=== PATIENT | female | born 1980 | race Caucasian/White ===

== ENCOUNTER 2022-10-08 14:41 | Emergency (ER) | payer MEDICARE, SELFPAY ==
--- NOTE | 2022-10-08 14:55 | ED.CPR ---
HPI - CPR General Chief Complaint: Cardiac Arrest/CPR Stated Complaint: CARDIAC ARREST Source: EMS Mode of arrival: EMS History of Present Illness HPI narrative: 46 yo last time see normal was 3 AM per EMS,this pm found her unresponsive an ambulance called around 2 PM,upon EMS arrival she has rigor mortis CPR was started she remained asystolic per EMS,Advanced airway placed with positive C02 detector 5 per EMS. At arrival [place] on asytolic /pulseless/ code was called at 2.46 PM complaint: found unresponsive Onset (ago): unknown (last time sen normal 3 AM) Place: home Shock advised: No Initial findings in the field: unresponsive, no pulse and other rhythm (asysostolic) ROSC in the field: No Associated injuries: No Known history of: other (unknown) Review of Systems Review of Systems: Yes Unobtainable due to mental condition PMFSH Social History Social History Advance Directives: No Advance Directives Information Provided: No Physical Exam Vital Signs: Vital Signs: 0 Const: Other: unresponsive rigid ,rigor mortis present Eyes: Other: pupils fixed and dilated Resp: Other: no spontaneus ventilation,ventilated with advanced airway Auscultation: clear to auscultation bilaterally Cardio: Other: no hert sounds GI: Inspection: Yes normal to inspection Neuro: Other: unresponsive Course Reevaluation(s) Reevaluation #1: pt arrived with more than 45 minutes of ALS asystolic/rigor mortis,she was pronounced at arrival 1446,family is not here yet Time: 15:05 Reevaluation #2: Spoke with Gage Kiser accepted the case case Time: 15:12 Reevaluation #3: As now no Family arrived Time: 16:03 Medical Decision Making Medical Decision Making MDM Narrative: 42 yo female presented with out of hospital cardiac,she arrive with rtigor mortis and she was pronunced at arrival to the ED Differential Diagnosis Differential Diagnoses: The differential diagnosis associated with the presentation includes Drug OD/PE/Dissection/AL Discharge Plan Discharge Clinical Impression: Cardiac arrest Patient Disposition: Date/Time: 10/08/22 14:46
--- OUTSIDE RECORDS SUMMARY | 2022-10-08 15:02 | XMS_ITS | Continuity of Care Document ---
:1980 Author Organization [facility] p Address [address] [place] [address], [address] [place] [address]- Care Team Providers Name Role Phone Oswald Laguerre MD [facility] Care [id number] Date(s): 09/26/19 - 10/06/19 [facility] [address], [address] [place] [address]- Attending Physician: Tamera Hanson Admitting Physician: AdmTamera miranda Referring Physician: AdmtrTamera Allergies, Adverse Reactions, Alerts Substance Reaction Severity Status NKA Active Immunizations Given and Recorded Vaccine Date Status Refusal Reason pneumococcal 23-valent vaccine 08/14/17 Given influenza virus vaccine, inactivated 08/14/17 Given Medications ALPRAZolam 1 mg oral tablet, extended release 1 tablet = 1 mg, By Mouth, Daily in AM, Maintenance, 03/25/19 16:24:42 EDT, ER Tablet Start Date: 03/25/19 Status: Orderedatorvastatin 40 mg oral tablet = 40 mg, By Mouth, Daily at bedtime, # 30 tablet, 0 Refills, Maintenance, Tablet, Print Requisition Start Date: 08/15/17 Stop Date: 09/14/17 Status: Orderedcholecalciferol 2000 intl units oral capsule 1 capsule = 2,000 International_Units, By Mouth, Daily, Maintenance, 03/25/19 16:28:00 EDT, Capsule Start Date: 03/25/19 Status: Orderedfluticasone 50 mcg/inh nasal spray 2 sprays, Nares, Both, Daily in AM, Maintenance, 03/25/19 16:25:04 EDT, [place] Start Date: 03/25/19 Status: Orderedgabapentin 100 mg oral capsule 100 mg, 1, capsule, By Mouth, 3 times a day, PRN, as needed Start Date: 03/25/19 Status: Orderedlamotrigine 200 mg oral tablet = 200 mg, By Mouth, Daily in AM, 0 Refills, Maintenance, 01/11/18 10:52:14 EDT, Tablet Start Date: 01/11/18 Status: OrderedLiletta 52 mg intrauterine device 1 each = 52 mg, Intrauterine, Once, # 1 each, 0 Refills, Soft Stop, 08/26/19 12:18:35 EST, 153, cm, 08/26/19 11:33:02 EST, Height, 60.3, kg, 03/26/19 1:52:48 EDT, Dry Weight Start Date: 08/26/19 Status: Orderedmeclizine 25 mg oral tablet 1 tablet = 25 mg, By Mouth, 3 times a day, PRN for motion sickness, # 30 tablet, 0 Refills, Maintenance, 08/11/17 18:45:05, Tablet Start Date: 08/11/17 Status: Orderedolanzapine 20 mg oral tablet 1 tablet = 20 mg, By Mouth, Daily at bedtime, Maintenance, 03/25/19 16:26:30 EDT, Tablet Start Date: 03/25/19 Status: Orderedpropranolol 10 mg oral tablet 10 mg, 1, tablet, By Mouth, 2 times a day, Maintenance, 03/25/19 16:26:59 EDT Start Date: 03/25/19 Status: OrderedTylenol 325 mg oral capsule 2 capsule = 650 mg, By Mouth, Every 4 hours, PRN as needed for fever, # 20 capsule, 0 Refills, Maintenance, 09/02/19 8:30:13 EST, Capsule, [facility]/pharmacy #[id number], 153.5, cm, 09/02/19 6:56:51 EST, Height, 52.9, kg, 09/02/19 6:56:51 EST, Dry Weight Start Date: 09/02/19 Status: OrderedZofran 4 mg oral tablet 1 tablet = 4 mg, By Mouth, Every 8 hours, PRN Nausea & Vomiting, # 10 tablet, 0 Refills, Maintenance, 03/30/19 7:42:51 EDT, Tablet Start Date: 03/30/19 Status: Ordered Problem List Condition Effective Dates Status Health Status Informant Anxiety(Confirmed) Active Fibromyalgia muscle pain(Confirmed) Active PTSD (post-traumatic stress Active disorder)(Confirmed) Pancreatitis, recurrent(Confirmed) Active Social History Social History Type Response Smoking Status Current every day smoker; Ty pe: Cigarettes; Previous treatment: Nicotine replacement; Tobacco use times per day: 10-15 per day; Started at age: 17; entered on: 08/11/17 Sex
--- OUTSIDE RECORDS SUMMARY | 2022-10-08 15:02 | XMS_ITS | Continuity of Care Document ---
:1980 Author Organization [facility] Address [address] [place] [address]- Care Team Providers Name Role Phone Oswald Laguerre MD Primary Care Physician [place] [facility] [place] 11[place]18[place]20 - 12/18/20 [facility] [address] [place] [address]- Allergies, Adverse Reactions, Alerts Substance Reaction Severity Status NKA Active Immunizations Given and Recorded Vaccine Date Status Refusal Reason pneumococcal 23-valent vaccine 08/14/17 Given influenza virus vaccine, inactivated 08/14/17 Given Medications acetaminophen 325 mg oral capsule 2 capsule = 650 mg, By Mouth, Every 4 hours, PRN Pain , Moderate, # 90 capsule, 0 Refills, Maintenance, 05/20/20 17:35:00 EDT, Capsule, [facility], 152, cm, 05/20/20 16:32:00 EDT, Height,57, kg, 05/18/20 12:42:00 EDT, Dry Weight Start Date: 05/20/20 Status: Orderedapixaban 5 mg oral tablet 1 tablet = 5 mg, By Mouth, 2 times a day, # 30 tablet, 0 Refills, Maintenance, 06/01/20 16:53:00 EDT, Tablet, [facility], 152, cm, 06/01/20 5:58:00 EDT, Height, 52.5, kg, 05/28/20 19:47:00 EDT, Dry Weight Start Date: 06/01/20 Status: Orderedatorvastatin 40 mg oral tablet = 40 mg, By Mouth, Daily at bedtime, # 30 tablet, 0 Refills, Maintenance, Tablet, Print Requisition Start Date: 08/15/17 Stop Date: 09/14/17 Status: OrderedbusPIRone 5 mg oral tablet 5 mg, 1, tablet, By Mouth, 3 times a day, # 90 tablet, Refills 0, Maintenance, 05/18/20 13:10:00 EDT Start Date: 05/18/20 Status: Orderedcholecalciferol 2000 intl units oral capsule 1 capsule = 2,000 International_Units, By Mouth, Daily, Maintenance, 03/25/19 16:28:00 EDT, Capsule Start Date: 03/25/19 Status: Orderedfluticasone 50 mcg/inh nasal spray 2 sprays, Nares, Both, Daily in AM, Maintenance, 03/25/19 16:25:04 EDT, [place] Start Date: 03/25/19 Status: Orderedgabapentin 100 mg oral capsule 100 mg, 1, capsule, By Mouth, 3 times a day Start Date: 03/25/19 Status: Orderedlamotrigine 200 mg [...] EDT, Dry Weight Start Date: 08/26/19 Status: OrderedMelatonin 10 mg oral tablet 1 tablet = 10 mg, By Mouth, Daily at bedtime, 0 Refills, Maintenance, 07/17/20 0:07:00 EDT Start Date: 07/17/20 Status: Orderedolanzapine 20 mg oral tablet 1 tablet = 20 mg, By Mouth, Daily at bedtime, Maintenance, 03/25/19 16:26:30 EDT, Tablet Start Date: 03/25/19 Status: Orderedpromethazine 25 mg oral tablet 0.5 each = 12.5 mg, By Mouth, 2 times a day, PRN Vomiting, # 3 tablet, 0 Refills, Maintenance, 06/01/20 17:48:00 EDT, Tablet, [facility], 152, cm, 06/01/20 5:58:00 EDT, Height, 52.5, kg, 05/28/20 19:47:00 EDT, Dry Weight Start Date: 06/01/20 Stop Date: 06/04/20 Status: Orderedpropranolol 10 mg oral tablet 10 mg, 1, tablet, By Mouth, 2 times a day, Maintenance, 03/25/19 16:26:59 EDT Start Date: 03/25/19 Status: Ordered Problem List Condition Effective Dates Status Health Status Informant Anxiety(Confirmed) Active Fibromyalgia muscle pain(Confirmed) Active PTSD (post-traumatic stress Active disorder)(Confirmed) Pancreatitis, recurrent(Confirmed) Active Social History Social History Type Response Smoking Status Current every day smoker; Ty pe: Cigarettes; Previous treatment: Nicotine replacement; Tobacco use times per day: 10-15 per day; Started at age: 17; entered on: 08/11/17 Sex Female
--- OUTSIDE RECORDS SUMMARY | 2022-10-08 15:02 | XMS_ITS | Continuity of Care Document ---
:1980 Author Organization [facility] [employer] [facility] p Address [address] [place] [address], [address] [place] [address]- Care Team Providers Name Role Phone Oswald Laguerre MD Primary Care Physician Encounter [facility] [place] Date(s): 08/29/19 - 10/26/19 [facility] [employer] [address] [place] [address], [address] [place] [address]- Attending Physician: Javy Fraire MD Referring Physician: Oswald Laguerre MD Allergies, Adverse Reactions, Alerts Substance Reaction Severity [...] Daily in AM, Maintenance, 03/25/19 16:25:04 EDT, [place] Start Date: 03/25/19 Status: Orderedgabapentin 100 mg [...] 0 Refills, Maintenance, 09/02/19 8:30:13 EST, Capsule, [facility]/pharmacy #[id number], 153.5, cm, 09/02/19 6:56:51 [...]
--- OUTSIDE RECORDS SUMMARY | 2022-10-08 15:02 | XMS_ITS | Continuity of Care Document ---
:1980 Author Organization [facility] Address [address] [place] [address]- Care Team Providers Name Role Phone Shade GARCIA, Oswald Primary Care Physician Encounter [facility] [place] Date(s): 01/13/20 - 02/12/20 [facility] [address] [place] [address]- [facility] Attending Physician: Tamera Hanson Admitting Physician: Tamera Hanson Referring Physician: trTamera Allergies, Adverse Reactions, Alerts Substance Reaction Severity [...] Daily in AM, Maintenance, 03/25/19 16:25:04 EDT, [place] Start Date: 03/25/19 Status: Orderedgabapentin 100 mg [...] 0 Refills, Maintenance, 09/02/19 8:30:13 EST, Capsule, [facility]/pharmacy #[id number], 153.5, cm, 09/02/19 6:56:51 EST, [...]
--- OUTSIDE RECORDS SUMMARY | 2022-10-08 15:02 | XMS_ITS | Continuity of Care Document ---
:1980 Author Organization [facility] Address [address] [place] [address]- Care Team Providers Name Role Phone Oswald Laguerre MD Primary Care Physician Encounter [facility] [place] Date(s): 11/01/20 - 12/01/20 [facility] [address] [place] [id number] Attending Physician: Tamera Hanson Admitting Physician: Tamera [...] 0 Refills, Maintenance, 05/20/20 17:35:00 EDT, Capsule, [facility], 152, cm, 05/20/20 16:32:00 EDT, Height,57, kg, 05/18/20 12:42:00 EDT, Dry Weight Start Date: 05/20/20 Status: Orderedapixaban 5 mg oral tablet 1 tablet = 5 mg, By Mouth, 2 times a day, # 30 tablet, 0 Refills, Maintenance, 06/01/20 16:53:00 EDT, Tablet, [facility], 152, cm, 06/01/20 5:58:00 [...] Daily in AM, Maintenance, 03/25/19 16:25:04 EDT, [place] Start Date: 03/25/19 Status: Orderedgabapentin 100 mg [...] 0 Refills, Maintenance, 06/01/20 17:48:00 EDT, Tablet, [facility], 152, cm, 06/01/20 5:58:00 EDT, [...]
--- OUTSIDE RECORDS SUMMARY | 2022-10-08 15:02 | XMS_ITS | Continuity of Care Document ---
:1980 Author Organization [facility] Address Unavailable , Care Team Providers Name Role Phone Oswald Laguerre MD Primary Care Physician Encounter [facility] [place] Date(s): 06/14/21 - 07/14/21 [facility] Allergies, Adverse Reactions, Alerts Substance Reaction Severity Status NKA Active Immunizations Given and Recorded Vaccine Date Status Refusal Reason pneumococcal 23-valent vaccine 08/14/17 Given influenza virus vaccine, inactivated 08/14/17 Given Medications acetaminophen 325 mg oral capsule 2 capsule = 650 mg, By Mouth, Every 4 hours, PRN Pain , Moderate, # 90 capsule, 0 Refills, Maintenance, 05/20/20 17:35:00 EDT, Capsule, [facility], 152, cm, 05/20/20 16:32:00 EDT, Height,57, kg, 05/18/20 12:42:00 EDT, Dry Weight Start Date: 05/20/20 Status: Orderedapixaban 5 mg oral tablet 1 tablet = 5 mg, By Mouth, 2 times a day, # 30 tablet, 0 Refills, Maintenance, 06/01/20 16:53:00 EDT, Tablet, [facility], 152, cm, 06/01/20 5:58:00 [...] Daily in AM, Maintenance, 03/25/19 16:25:04 EDT, [place] Start Date: 03/25/19 Status: Orderedgabapentin 100 mg [...] 0 Refills, Maintenance, 06/01/20 17:48:00 EDT, Tablet, [facility], 152, cm, 06/01/20 5:58:00 [...]
--- OUTSIDE RECORDS SUMMARY | 2022-10-08 15:02 | XMS_ITS | Continuity of Care Document ---
:1980 Author Organization [facility] Address [address] [place] [phone]- Care Team Providers Name Role Phone Oswald Laguerre MD Primary Care Physician Encounter [facility] [place] Date(s): 06/17/20 - 07/17/20 [facility] [address] [place] [address]- [facility] Attending Physician: Tamera Hanson Admitting Physician: Tamera Hanson Referring Physician: AdmtrTamera Allergies, Adverse Reactions, Alerts Substance Reaction Severity Status NKA Active Immunizations Given and Recorded Vaccine Date Status Refusal Reason pneumococcal 23-valent vaccine 08/14/17 Given influenza virus vaccine, inactivated 08/14/17 Given Medications acetaminophen 325 mg oral capsule 2 capsule = 650 mg, By Mouth, Every 4 hours, PRN Pain , Moderate, # 90 capsule, 0 Refills, Maintenance, 05/20/20 17:35:00 EDT, Capsule, [facility], 152, cm, 05/20/20 16:32:00 EDT, Height,57, kg, 05/18/20 12:42:00 EDT, Dry Weight Start Date: 05/20/20 Status: Orderedapixaban 5 mg oral tablet 1 tablet = 5 mg, By Mouth, 2 times a day, # 30 tablet, 0 Refills, Maintenance, 06/01/20 16:53:00 EDT, Tablet, [facility], 152, cm, 06/01/20 5:58:00 [...] Daily in AM, Maintenance, 03/25/19 16:25:04 EDT, [place] Start Date: 03/25/19 Status: Orderedgabapentin 100 mg [...] 07/17/20 0:07:00 EDT Start Date: 07/17/20 Status: Orderednaltrexone 50 mg oral tablet 1 tablet = 50 mg, By Mouth, Daily, # 30 tablet, 0 Refills, Maintenance, 05/11/20 10:20:00 EDT, Tablet, [facility], 152, cm, 05/10/20 9:15:00 EDT, Height, 60.2, kg, 05/05/20 4:48:00 EDT, Dry Weight Start Date: 05/11/20 Status: Orderedolanzapine 20 mg oral tablet 1 tablet = 20 mg, By Mouth, Daily at bedtime, Maintenance, 03/25/19 16:26:30 EDT, Tablet Start Date: 03/25/19 Status: Orderedpromethazine 25 mg oral tablet 0.5 each = 12.5 mg, By Mouth, 2 times a day, PRN Vomiting, # 3 tablet, 0 Refills, Maintenance, 06/01/20 17:48:00 EDT, Tablet, [facility], 152, cm, 06/01/20 5:58:00 [...]
--- OUTSIDE RECORDS SUMMARY | 2022-10-08 15:02 | XMS_ITS | Continuity of Care Document ---
:1980 Author Organization [facility] Address [address] [facility], 3rd Floor, [address] [place] [address]- Care Team Providers Name Role Phone Oswald Laguerre MD Primary Care Physician Encounter [facility] [place] Date(s): 02/15/21 - 03/17/21 [facility] [address] [facility], 3rd Floor, [address] [place] [address] Allergies, Adverse Reactions, Alerts Substance Reaction Severity Status NKA Active Immunizations Given and Recorded Vaccine Date Status Refusal Reason pneumococcal 23-valent vaccine 08/14/17 Given influenza virus vaccine, inactivated 08/14/17 Given Medications acetaminophen 325 mg oral capsule 2 capsule = 650 mg, By Mouth, Every 4 hours, PRN Pain , Moderate, # 90 capsule, 0 Refills, Maintenance, 05/20/20 17:35:00 EDT, Capsule, [facility], 152, cm, 05/20/20 16:32:00 EDT, Height,57, kg, 05/18/20 12:42:00 EDT, Dry Weight Start Date: 05/20/20 Status: Orderedapixaban 5 mg oral tablet 1 tablet = 5 mg, By Mouth, 2 times a day, # 30 tablet, 0 Refills, Maintenance, 06/01/20 16:53:00 EDT, Tablet, [facility], 152, cm, 06/01/20 [...] Daily in AM, Maintenance, 03/25/19 16:25:04 EDT, [place] Start Date: 03/25/19 Status: Orderedgabapentin 100 mg [...] 0 Refills, Maintenance, 06/01/20 17:48:00 EDT, Tablet, [facility], 152, cm, 06/01/20 5:58:00 EDT, Height, [...]
--- OUTSIDE RECORDS SUMMARY | 2022-10-08 15:02 | XMS_ITS | Continuity of Care Document ---
:1980 Author Organization [facility] Address [address] [facility], 3rd Floor, [address] [place] [address]- Care Team Providers Name Role Phone Oswald Laguerre MD Primary Care Physician Encounter [facility] [place] Date(s): 03/31/21 - 04/30/21 [facility] [address] [facility], 3rd Floor, [address] [place] [id number] Attending Physician: Tamera Hanson Admitting Physician: Admtr, Tamera Referring Physician: Admtr, Ar8 Allergies, Adverse Reactions, Alerts Substance Reaction Severity Status NKA Active Immunizations Given and Recorded Vaccine Date Status Refusal Reason pneumococcal 23-valent vaccine 08/14/17 Given influenza virus vaccine, inactivated 08/14/17 Given Medications acetaminophen 325 mg oral capsule 2 capsule = 650 mg, By Mouth, Every 4 hours, PRN Pain , Moderate, # 90 capsule, 0 Refills, Maintenance, 05/20/20 17:35:00 EDT, Capsule, [facility], 152, cm, 05/20/20 16:32:00 EDT, Height,57, kg, 05/18/20 12:42:00 EDT, [place] Weight Start Date: 05/20/20 Status: Orderedapixaban 5 mg oral tablet 1 tablet = 5 mg, By Mouth, 2 times a day, # 30 tablet, 0 Refills, Maintenance, 06/01/20 16:53:00 EDT, Tablet, [facility], 152, cm, 06/01/20 5:58:00 [...] Daily in AM, Maintenance, 03/25/19 16:25:04 EDT, [place] Start Date: 03/25/19 Status: Orderedgabapentin 100 mg [...] 0 Refills, Maintenance, 06/01/20 17:48:00 EDT, Tablet, [facility], 152, cm, 06/01/20 5:58:00 [...]
--- OUTSIDE RECORDS SUMMARY | 2022-10-08 15:02 | XMS_ITS | Continuity of Care Document ---
:1980 Author Organization [facility] Address [address] [place] [address]- Care Team Providers Name Role Phone Shade GARCIA, Oswald Primary Care Physician [place] [facility] [place] Date(s): 05/19/20 - 09/16/20 [facility] [address] [place] [address]- Attending Physician: Hira Moise MD Admitting Physician: Hira Moise MD Referring Physician: Oswald Laguerre MD Allergies, [...] 0 Refills, Maintenance, 05/20/20 17:35:00 EDT, Capsule, [facility], 152, cm, 05/20/20 16:32:00 EDT, Height,57, kg, 05/18/20 12:42:00 EDT, Dry Weight Start Date: 05/20/20 Status: Orderedapixaban 5 mg oral tablet 1 tablet = 5 mg, By Mouth, 2 times a day, # 30 tablet, 0 Refills, Maintenance, 06/01/20 16:53:00 EDT, Tablet, [facility], 152, cm, 06/01/20 5:58:00 [...] Daily in AM, Maintenance, 03/25/19 16:25:04 EDT, [place] Start Date: 03/25/19 Status: Orderedgabapentin 100 mg [...] 0 Refills, Maintenance, 06/01/20 17:48:00 EDT, Tablet, [facility], 152, cm, 06/01/20 5:58:00 [...]
--- OUTSIDE RECORDS SUMMARY | 2022-10-08 15:02 | XMS_ITS | Continuity of Care Document ---
:1980 Author Organization [facility] Address [address] [place] [address]- Care Team Providers Name Role Phone Shade GARCIA, Oswald Primary Care Physician Encounter [facility] [place] Date(s): 11/13/19 - 02/12/20 [facility] [address] [place] [address]- [facility] Attending Physician: Nicole Duckworth MD Admitting Physician: Nicole Duckworth MD Referring Physician: Oswald Laguerre MD Allergies, [...] Daily in AM, Maintenance, 03/25/19 16:25:04 EDT, [place] Start Date: 03/25/19 Status: Orderedgabapentin 100 mg [...] 0 Refills, Maintenance, 09/02/19 8:30:13 EST, Capsule, [facility]/pharmacy #[id number], 153.5, cm, 09/02/19 6:56:51 EST, Height, [...]
--- OUTSIDE RECORDS SUMMARY | 2022-10-08 15:02 | XMS_ITS | Continuity of Care Document ---
:1980 Author Organization [facility] Address [address] [facility], 3rd Floor, [address] [place] [address]- Care Team Providers Name Role Phone Oswald Laguerre MD Primary Care Physician Encounter [facility] [place] Date(s): 12/01/20 - 12/31/20 [facility] [address] [facility], 3rd Floor, [address] [place] [id number] Attending Physician: Tamera Hanson Admitting Physician: Admtr, [...] 0 Refills, Maintenance, 05/20/20 17:35:00 EDT, Capsule, [facility], 152, cm, 05/20/20 16:32:00 EDT, Height,57, kg, 05/18/20 12:42:00 EDT, Dry Weight Start Date: 05/20/20 Status: Orderedapixaban 5 mg oral tablet 1 tablet = 5 mg, By Mouth, 2 times a day, # 30 tablet, 0 Refills, Maintenance, 06/01/20 16:53:00 EDT, Tablet, [facility], 152, cm, 06/01/20 5:58:00 EDT, [...] Daily in AM, Maintenance, 03/25/19 16:25:04 EDT, [place] Start Date: 03/25/19 Status: Orderedgabapentin 100 [...] 0 Refills, Maintenance, 06/01/20 17:48:00 EDT, Tablet, [facility], 152, cm, 06/01/20 5:58:00 EDT, [...]
--- OUTSIDE RECORDS SUMMARY | 2022-10-08 15:02 | XMS_ITS | Continuity of Care Document ---
:1980 Author Organization [facility] Address [address] [place] [address]- Care Team Providers Name Role Phone Oswald Laguerre MD Primary Care Physician [place] [facility] [place]20 - 07/17/20 [facility] [address] [place] [address]- [facility] Attending Physician: Babak Cooper MD Admitting Physician: Babak Cooper MD Referring Physician: Oswald Laguerre MD Allergies, [...] 0 Refills, Maintenance, 05/20/20 17:35:00 EDT, Capsule, [facility], 152, cm, 05/20/20 16:32:00 EDT, Height,57, kg, 05/18/20 12:42:00 EDT, Dry Weight Start Date: 05/20/20 Status: Orderedapixaban 5 mg oral tablet 1 tablet = 5 mg, By Mouth, 2 times a day, # 30 tablet, 0 Refills, Maintenance, 06/01/20 16:53:00 EDT, Tablet, [facility], 152, cm, 06/01/20 [...] Daily in AM, Maintenance, 03/25/19 16:25:04 EDT, [place] Start Date: 03/25/19 Status: Orderedgabapentin 100 mg [...] 0 Refills, Maintenance, 05/11/20 10:20:00 EDT, Tablet, [facility], 152, cm, 05/10/20 9:15:00 EDT, Height, [...] 0 Refills, Maintenance, 06/01/20 17:48:00 EDT, Tablet, [facility], 152, cm, 06/01/20 [...]
--- OUTSIDE RECORDS SUMMARY | 2022-10-08 15:02 | XMS_ITS | Continuity of Care Document ---
:1980 Author [facility] [employer] Address [address] [place] [address], [address] [place] [address]- Care Team Providers Name Role Phone Oswald Laguerre MD Primary Care Physician Encounter [facility] [place] Date(s): 08/26/19 - [facility]02/[facility] [address], [address] [place] [address]- Attending Physician: Amber Mason MD Referring Physician: Not on Staff, Referring MD Allergies, Adverse Reactions, Alerts Substance Reaction [...] Daily in AM, Maintenance, 03/25/19 16:25:04 EDT, [place] Start Date: 03/25/19 Status: Orderedgabapentin 100 mg [...] 0 Refills, Maintenance, 09/02/19 8:30:13 EST, Capsule, [facility]/pharmacy #[id number], 153.5, cm, 09/02/19 6:56:51 EST, Height, [...] (post-traumatic stress Active disorder)(Confirmed) Pancreatitis, recurrent(Confirmed) Active Vital Signs Most recent to oldest [Reference Range]: 1 Height 153 cm (08/26/19 11:33 AM) Weight 52.7 kg (08/26/19 11:33 AM) Body Mass Index [18.5-24.99] 22.51 (08/26/19 11:33 AM) Blood Pressure [90-138/55-84 mm Hg] 120/88 mm Hg (08/26/19 11:33 AM) Blood pressure sites Arm, left (08/26/19 11:33 AM) Weight Obtained Via Standing scale (08/26/19 11:33 AM) Social History Social History Type Response Smoking Status Current every day smoker; Ty pe: Cigarettes; Previous treatment: Nicotine replacement; Tobacco use times per day: 10-15 per day; Started at age: 17; entered on: 08/11/17 Sex
--- OUTSIDE RECORDS SUMMARY | 2022-10-08 15:02 | XMS_ITS | Continuity of Care Document ---
:1980 Author Organization [facility] Address [address] [place] [phone]- Care Team Providers Name Role Phone Shade GARCIA, Oswald Primary Care Physician Encounter [facility] Date(s): 10/23/19 - 01/18/20 [facility] [address] [place] [address]- [facility] Attending Physician: Nicole Duckworth MD Admitting Physician: [...] Daily in AM, Maintenance, 03/25/19 16:25:04 EDT, [place] Start Date: 03/25/19 Status: Orderedgabapentin 100 mg [...] Maintenance, 09/02/19 8:30:13 EST, Capsule, [facility]/pharmacy #[id number], 153.5, cm, 09/02/19 6:56:51 EST, Height, [...]
--- OUTSIDE RECORDS SUMMARY | 2022-10-08 15:02 | XMS_ITS | Continuity of Care Document ---
:1980 Author Organization [facility] Address [address] [place] [address]- Care Team Providers Name Role Phone Oswald Laguerre MD Primary Care Physician [place] [facility] [place]28/20 - 06/01/[address] [address]- [facility] Discharge Disposition: A-Transfer VNA/Home Health Attending Physician: Mya Harper MD Admitting Physician: Jose Luis Gutierrez MD Referring Physician: Not on Staff, Referring [...] 0 Refills, Maintenance, 05/20/20 17:35:00 EDT, Capsule, [facility], 152, cm, 05/20/20 16:32:00 EDT, Height,57, kg, 05/18/20 12:42:00 EDT, Dry Weight Start Date: 05/20/20 Status: Orderedapixaban 5 mg oral tablet 1 tablet = 5 mg, By Mouth, 2 times a day, # 30 tablet, 0 Refills, Maintenance, 06/01/20 16:53:00 EDT, Tablet, [facility], 152, cm, 06/01/20 5:58:00 [...] Daily in AM, Maintenance, 03/25/19 16:25:04 EDT, [place] Start Date: 03/25/19 Status: Orderedgabapentin 100 mg [...] EDT, Dry Weight Start Date: 08/26/19 Status: Orderednaltrexone 50 mg oral tablet 1 tablet = 50 mg, By Mouth, Daily, # 30 tablet, 0 Refills, Maintenance, 05/11/20 10:20:00 EDT, Tablet, [facility], 152, cm, 05/10/20 9:15:00 [...] 0 Refills, Maintenance, 06/01/20 17:48:00 EDT, Tablet, [facility], 152, cm, 06/01/20 5:58:00 EDT, Height, 52.5, kg, 05/28/20 19:47:00 EDT, Dry Weight Start Date: 06/01/20 Stop Date: 06/04/20 Status: Orderedpropranolol 10 mg oral tablet 10 mg, 1, tablet, By Mouth, 2 times a day, Maintenance, 03/25/19 16:26:59 EDT Start Date: 03/25/19 Status: Orderedpyridoxine 50 mg oral tablet 50 mg, 1, tablet, By Mouth, Daily, for 30 days, # 30 tablet, Refills 0, Tot. Refills 0, Acute 07/01/20 16:51:00 EDT, 06/01/20 16:51:00 EDT, Route to Pharmacy Electronically, [facility], 152, cm, 06/01/20 5:58:00 EDT, Height, 52.5, kg, 09... Start Date: 06/01/20 Stop Date: 07/01/20 Status: Orderedthiamine 100 mg oral tablet 100 mg, 1, tablet, By Mouth, 2 times a day, for 30 days, # 60 tablet, Refills 0, Tot. Refills 0, Acute 07/01/20 16:51:00 EDT, 06/01/20 16:51:00 EDT, Route to Pharmacy Electronically, [facility], 152, cm, 06/01/20 5:58:00 EDT, Height, 52.... Start Date: 06/01/20 Stop Date: 07/01/20 Status: Ordered Problem List Condition Effective Dates Status Health Status Informant Anxiety(Confirmed) Active Fibromyalgia muscle pain(Confirmed) Active PTSD (post-traumatic stress Active disorder)(Confirmed) Pancreatitis, recurrent(Confirmed) Active Vital Signs Most recent to oldest 1 2 3 4 [Reference Range]: Height 152 cm 152 cm 152 cm (06/01/20 6:48 PM) (06/01/20 5:58 AM) (05/31/20 9:10 PM) Weight 52.5 kg (05/28/20 7:47 PM) Oxygen Saturation 100 % 100 % 98 % [94-100 %] (06/01/20 6:48 PM) (06/01/20 5:58 AM) (05/31/20 9:10 PM) Pulse Rate [55-90 bpm] 83 bpm 80 bpm 65 bpm (06/01/20 6:48 PM) (06/01/20 10:37 AM) (06/01/20 5:58 AM) Body Mass Index 22.72 [18.5-24.99] (05/28/20 7:47 PM) Blood Pressure 124/66 mm Hg 109/64 mm Hg 104/60 mm Hg [90-138/55-84 mm Hg] (06/01/20 6:48 PM) (06/01/20 10:37 AM) (06/01/20 5:58 AM) Respiratory Rate [16-30 16 br/min 20 br/min 18 br/min br/min] (06/01/20 6:48 PM) (06/01/20 5:35 PM) (06/01/20 1:43 PM) Temperature [96.8-100.4 98.7 DegF 97.8 DegF 98.0 DegF 98.0 DegF DegF] (06/01/20 6:48 PM) (06/01/20 5:58 AM) (05/31/20 9:10 PM) (05/31/20 9:10 PM) Mode of Delivery Room air Room air Room air (Oxygen) (06/01/20 6:48 PM) (06/01/20 5:58 AM) (05/31/20 9:10 PM) Blood pressure sites Arm, left Arm, right Arm, left (06/01/20 6:48 PM) (06/01/20 5:58 AM) (05/31/20 9:10 PM) Temperature Route Oral Oral Oral Oral (06/01/20 6:48 PM) (06/01/20 5:58 AM) (05/31/20 9:10 PM) (05/31/20 9:10 PM) Dry Weight 52.5 kg (05/28/20 7:47 PM) Social History Social History Type Response Smoking Status Current every day smoker; Ty pe: Cigarettes; Previous treatment: Nicotine replacement; Tobacco use times per day: 10-15 per day; Started at age: 17; entered on: 08/11/17 Sex Female
--- OUTSIDE RECORDS SUMMARY | 2022-10-08 15:02 | XMS_ITS | Continuity of Care Document ---
:1980 Author Organization [facility] Address [address] [place] [address]- Care Team Providers Name Role Phone Shade GARCIA, Oswald Primary Care Physician Encounter [facility] Date(s): 09/02/19 - 09/02/[address] [address]- [facility] Discharge Disposition: A-D/C Home Attending Physician: Javy Fraire MD Admitting Physician: Javy Fraire MD Referring Physician: Javy Fraire MD Allergies, Adverse Reactions, Alerts Substance Reaction [...] Daily in AM, Maintenance, 03/25/19 16:25:04 EDT, [place] Start Date: 03/25/19 Status: Orderedgabapentin 100 mg [...] Refills, Maintenance, 09/02/19 8:30:13 EST, Capsule, [facility]/pharmacy #[id number], 153.5, cm, 09/02/19 6:56:51 EST, Height, [...] Most recent to oldest 1 2 3 [Reference Range]: Height 153.5 cm (09/02/19 6:56 AM) Weight 52.9 kg (09/02/19 6:56 AM) Oxygen Saturation [94-100 98 % 97 % 100 % %] (09/02/19 10:30 AM) (09/02/19 10:15 AM) ( 10:00 AM) Pulse Rate [55-90 bpm] 69 bpm (09/02/19 6:56 AM) Body Mass Index 22.45 [18.5-24.99] (09/02/19 6:56 AM) Blood Pressure 99/53 mm Hg 104/71 mm Hg 112/87 mm Hg [90-138/55-84 mm Hg] (09/02/19 10:15 AM) (09/02/19 10:00 AM) ( 9:45 AM) Respiratory Rate [16-30 17 br/min 11 br/min 18 br/mi n br/min] (09/02/19 10:30 AM) *L* (09/02/19 10 :00 AM) (09/02/19 10:15 AM) Temperature [96.8-100.4 98 DegF 98.4 DegF 98 DegF DegF] (09/02/19 10:00 AM) (09/02/19 8:30 AM) (09/02/19 6:56 AM) Liters per Minute 6 L/min (09/02/19 8:30 AM) Mode of Delivery (Oxygen) Room air Shovel mask Room a ir (09/02/19 9:30 AM) (09/02/19 8:30 AM) (09/02/19 6:56 AM) Blood pressure sites Arm, left (09/02/19 6:56 AM) Temperature Route Temporal Temporal Temporal (09/02/19 10:00 AM) (09/02/19 8:30 AM) (09/02/19 6:56 AM) Dry Weight 52.9 kg (09/02/19 6:56 AM) Weight Obtained Via Standing scale (09/02/19 6:56 AM) Dry Weight Obtained Via Standing scale (09/02/19 6:56 AM) Social History Social History Type Response Smoking Status Current every day smoker; Ty pe: Cigarettes; Previous treatment: Nicotine replacement; Tobacco use times per day: 10-15 per day; Started at age: 17; entered on: 08/11/17 Sex
--- OUTSIDE RECORDS SUMMARY | 2022-10-08 15:02 | XMS_ITS | Continuity of Care Document ---
:1980 Author Organization [facility] Address [address] [place] [address]- Care Team Providers Name Role Phone Oswald Laguerre MD Primary Care Physician Encounter [facility] [place] Date(s): 05/31/20 - 06/30/[address] [address]- [facility] Attending Physician: Not on Staff, Attending MD Admitting Physician: Not on Staff, Admitting MD Referring Physician: Not on Staff, Referring [...] 0 Refills, Maintenance, 05/20/20 17:35:00 EDT, Capsule, [facility], 152, cm, 05/20/20 16:32:00 EDT, Height,57, kg, 05/18/20 12:42:00 EDT, Dry Weight Start Date: 05/20/20 Status: Orderedapixaban 5 mg oral tablet 1 tablet = 5 mg, By Mouth, 2 times a day, # 30 tablet, 0 Refills, Maintenance, 06/01/20 16:53:00 EDT, Tablet, [facility], 152, cm, 06/01/20 5:58:00 [...] Daily in AM, Maintenance, 03/25/19 16:25:04 EDT, [place] Start Date: 03/25/19 Status: Orderedgabapentin 100 mg [...] 0 Refills, Maintenance, 05/11/20 10:20:00 EDT, Tablet, [facility], 152, cm, 05/10/20 9:15:00 EDT, Height, [...] 0 Refills, Maintenance, 06/01/20 17:48:00 EDT, Tablet, [facility], 152, cm, 06/01/20 5:58:00 [...] 06/01/20 16:51:00 EDT, Route to Pharmacy Electronically, [facility], 152, cm, 06/01/20 5:58:00 EDT, Height, 52.5, kg, 09... Start Date: 06/01/20 Stop Date: 07/01/20 Status: Orderedthiamine 100 mg oral tablet 100 mg, 1, tablet, By Mouth, 2 times a day, for 30 days, # 60 tablet, Refills 0, Tot. Refills 0, Acute 07/01/20 16:51:00 EDT, 06/01/20 16:51:00 EDT, Route to Pharmacy Electronically, [facility] 3, 152, cm, 06/01/20 5:58:00 EDT, Height, [...]
--- OUTSIDE RECORDS SUMMARY | 2022-10-08 15:02 | XMS_ITS | Continuity of Care Document ---
:1980 Author Organization [facility] Address [address] [place] [address]- Care Team Providers Name Role Phone Oswald Laguerre MD Primary Care Physician [place] [facility] [place] Date(s): 06/17/20 - 07/17/20 [facility] [address] [place] [address]- [facility] Referring Physician: Chelsy Del Toro Allergies, Adverse Reactions, Alerts Substance Reaction Severity Status NKA Active Immunizations Given and Recorded Vaccine Date Status Refusal Reason pneumococcal 23-valent vaccine 08/14/17 Given influenza virus vaccine, inactivated 08/14/17 Given Medications acetaminophen 325 mg oral capsule 2 capsule = 650 mg, By Mouth, Every 4 hours, PRN Pain , Moderate, # 90 capsule, 0 Refills, Maintenance, 05/20/20 17:35:00 EDT, Capsule, [facility], 152, cm, 05/20/20 16:32:00 EDT, Height,57, kg, 05/18/20 12:42:00 EDT, Dry Weight Start Date: 05/20/20 Status: Orderedapixaban 5 mg oral tablet 1 tablet = 5 mg, By Mouth, 2 times a day, # 30 tablet, 0 Refills, Maintenance, 06/01/20 16:53:00 EDT, Tablet, [facility], 152, cm, 06/01/20 5:58:00 [...] Daily in AM, Maintenance, 03/25/19 16:25:04 EDT, [place] Start Date: 03/25/19 Status: Orderedgabapentin 100 mg [...] 0 Refills, Maintenance, 05/11/20 10:20:00 EDT, Tablet, [facility] 3, 152, cm, 05/10/20 9:15:00 [...] 0 Refills, Maintenance, 06/01/20 17:48:00 EDT, Tablet, [facility], 152, cm, 06/01/20 5:58:00 [...]
--- OUTSIDE RECORDS SUMMARY | 2022-10-08 15:02 | XMS_ITS | Continuity of Care Document ---
:1980 Author Organization [facility] Address [address] [place] [address]- Care Team Providers Name Role Phone Oswald Laguerre MD Primary Care Physician Encounter 06/02/20 - 06/18/20 [facility] [address] [place] [address]- [facility] Discharge Disposition: PER PHYSICIAN REQUEST Allergies, Adverse Reactions, Alerts Substance Reaction Severity Status NKA Active Immunizations Given and Recorded Vaccine Date Status Refusal Reason pneumococcal 23-valent vaccine 08/14/17 Given influenza virus vaccine, inactivated 08/14/17 Given Medications acetaminophen 325 mg oral capsule 2 capsule = 650 mg, By Mouth, Every 4 hours, PRN Pain , Moderate, # 90 capsule, 0 Refills, Maintenance, 05/20/20 17:35:00 EDT, Capsule, [facility], 152, cm, 05/20/20 16:32:00 EDT, Height,57, kg, 05/18/20 12:42:00 EDT, Dry Weight Start Date: 05/20/20 Status: Orderedapixaban 5 mg oral tablet 1 tablet = 5 mg, By Mouth, 2 times a day, # 30 tablet, 0 Refills, Maintenance, 06/01/20 16:53:00 EDT, Tablet, [facility], 152, cm, 06/01/20 5:58:00 [...] Daily in AM, Maintenance, 03/25/19 16:25:04 EDT, [place] Start Date: 03/25/19 Status: Orderedgabapentin 100 mg [...] 0 Refills, Maintenance, 05/11/20 10:20:00 EDT, Tablet, [facility] 3, 152, cm, 05/10/20 [...] 0 Refills, Maintenance, 06/01/20 17:48:00 EDT, Tablet, [facility], 152, cm, 06/01/20 5:58:00 [...] 06/01/20 16:51:00 EDT, Route to Pharmacy Electronically, [facility], 152, cm, 06/01/20 5:58:00 EDT, Height, 52.5, kg, 09... Start Date: 06/01/20 Stop Date: 07/01/20 Status: Orderedthiamine 100 mg oral tablet 100 mg, 1, tablet, By Mouth, 2 times a day, for 30 days, # 60 tablet, Refills 0, Tot. Refills 0, Acute 07/01/20 16:51:00 EDT, 06/01/20 16:51:00 EDT, Route to Pharmacy Electronically, [facility], 152, cm, 06/01/20 5:58:00 EDT, Height, [...]
--- OUTSIDE RECORDS SUMMARY | 2022-10-08 15:02 | XMS_ITS | Continuity of Care Document ---
:1980 Author Organization [facility] Address [address] [place] [address]- Care Team Providers Name Role Phone Oswald Laguerre MD Primary Care Physician Encounter [facility] [place] Date(s): 08/15/20 - 09/14/20 [facility] [address] [place] [address] Allergies, Adverse Reactions, Alerts Substance Reaction Severity Status NKA Active Immunizations Given and Recorded Vaccine Date Status Refusal Reason pneumococcal 23-valent vaccine 08/14/17 Given influenza virus vaccine, inactivated 08/14/17 Given Medications acetaminophen 325 mg oral capsule 2 capsule = 650 mg, By Mouth, Every 4 hours, PRN Pain , Moderate, # 90 capsule, 0 Refills, Maintenance, 05/20/20 17:35:00 EDT, Capsule, [facility], 152, cm, 05/20/20 16:32:00 EDT, Height,57, kg, 05/18/20 12:42:00 EDT, Dry Weight Start Date: 05/20/20 Status: Orderedapixaban 5 mg oral tablet 1 tablet = 5 mg, By Mouth, 2 times a day, # 30 tablet, 0 Refills, Maintenance, 06/01/20 16:53:00 EDT, Tablet, [facility], 152, cm, 06/01/20 5:58:00 [...] Daily in AM, Maintenance, 03/25/19 16:25:04 EDT, [place] Start Date: 03/25/19 Status: Orderedgabapentin 100 mg [...] 0 Refills, Maintenance, 06/01/20 17:48:00 EDT, Tablet, [facility], 152, cm, 06/01/20 5:58:00 [...]
--- OUTSIDE RECORDS SUMMARY | 2022-10-08 15:03 | XMS_ITS | Continuity of Care Document ---
:1980 Author Organization [facility] Address [address] [place] [address]- Care Team Providers Name Role Phone Shade GARCIA, Oswald Primary Care Physician Encounter [facility] [place] Date(s): 08/13/19 - 09/12/[address] [address]- [facility] Attending Physician: Amairani Cheng MD Admitting Physician: Amairani Cheng MD Allergies, Adverse Reactions, Alerts Substance Reaction [...] Daily in AM, Maintenance, 03/25/19 16:25:04 EDT, [place] Start Date: 03/25/19 Status: Orderedgabapentin 100 mg [...] Refills, Maintenance, 09/02/19 8:30:13 EST, Capsule, [facility]/pharmacy #[id number], 153.5, cm, 09/02/19 6:56:51 [...]
--- OUTSIDE RECORDS SUMMARY | 2022-10-08 15:03 | XMS_ITS | Continuity of Care Document ---
:1980 Author Organization [facility] Address [address] [facility], 3rd Floor, [address] [place] [address]- Care Team Providers Name Role Phone Oswald Laguerre MD Primary Care Physician [place] [facility] [place] 08/04/22 - 09/03/22 [facility] [address] [facility], [address]rd Floor, [address] [place] [id number] Allergies, Adverse Reactions, Alerts No Known Allergies Immunizations Given and Recorded Vaccine Date Status Refusal Reason pneumococcal 23-valent vaccine 08/14/17 Given influenza virus vaccine, inactivated 08/14/17 Given Medications acetaminophen 325 mg oral capsule 2 capsule = 650 mg, By Mouth, Every 4 hours, PRN Pain , Moderate, # 90 capsule, 0 Refills, Maintenance, 05/20/20 17:35:00 EDT, Capsule, [facility], 152, cm, 05/20/20 16:32:00 EDT, Height,57, kg, 05/18/20 12:42:00 EDT, Dry Weight Start Date: 05/20/20 Status: Orderedacetaminophen 325 mg oral capsule 2 capsule = 650 mg, By Mouth, Every 6 hours, PRN as needed for pain, # 20 capsule, 0 Refills, Maintenance, 02/25/22 21:01:00 EDT, Capsule, [facility]/pharmacy #[id number], Partial fill upon patient request if the prescription is for a schedule II opioid drug., 149... Start Date: 02/25/22 Status: Orderedapixaban 5 mg oral tablet 1 tablet = 5 mg, By Mouth, 2 times a day, # 30 tablet, 0 Refills, Maintenance, 06/01/20 16:53:00 EDT, Tablet, [facility], 152, cm, 06/01/20 5:58:00 [...] 16:28:00 EDT, [place] Start Date: 03/25/19 Status: OrderedCreon 24,000 units oral delayed release capsule 1 capsule, By Mouth, 3 times a day, # 90 capsule, 0 Refills, Maintenance, 08/09/20 12:18:00 EST, EC Capsule, [facility]/pharmacy #[id number], Partial fill upon patient request, 149.9, cm, 08/09/20 10:52:00 EST, Height, 52, kg, 07/16/20 23:44:00 EDT, Dry Weight Start Date: 08/09/20 Status: Orderedfluticasone 50 mcg/inh nasal spray 2 sprays, Nares, Both, Daily in AM, Maintenance, 03/25/19 16:25:04 EDT, [place] Start Date: 03/25/19 Status: Orderedgabapentin 100 mg [...] 0 Refills, Maintenance, 06/01/20 17:48:00 EDT, Tablet, [facility], 152, cm, 06/01/20 5:58:00 EDT, Height, 52.5, kg, 05/28/20 19:47:00 EDT, Dry Weight Start Date: 06/01/20 Stop Date: 06/04/20 Status: Orderedpropranolol 10 mg oral tablet 10 mg, 1, tablet, By Mouth, 2 times a day, Maintenance, 03/25/19 16:26:59 EDT Start Date: 03/25/19 Status: Ordered Problem List Condition Confirmation Course Effective Dates Status Health Stat Informant Anxiety Confirmed Active Fibromyalgia muscle Confirmed Active pain PTSD Confirmed Active (post-traumatic stress disorder) Pancreatitis, Confirmed Active recurrent Social History Social History Type Response Smoking Status Current every day smoker; Ty pe: Cigarettes; Previous treatment: Nicotine replacement; Tobacco use times per day: 10-15 per day; Started at age: 17; entered on: 08/11/17 Sex Female Patient Care team information Care Team PersonnelName: Diamond Burris RN Position: S RN Member Role: Primary Care Nurse Name: Jennifer Bustillo RN Position: S RN Member Role: Primary Care Nurse Name: Oswald Laguerre MD Position: Reference Physician Member Role: PCP Address: Address: [address] [place] [address] [address] [place], [place] [address] Name: Henri Goss RN Position: S RN Member Role: Primary Care Nurse Name: Angela Loza RN Position: S RN Member Role: Primary Care Nurse Name: Meaghan Downing RN Position: [facility] Casino Worker Member Role: Primary Care Nurse Name: Hanna Ruiz RN Position: [facility] RN Member Role: Primary Care Nurse Name: Felicia Garcia RN Position: [facility] SN RN Member Role: Primary Care Nurse Name: Francine Mosquera RN Position: [facility] RN Member Role: Primary Care Nurse Name: Marjorie Shen RN Position: [facility] [employer] Worker Member Role: Primary Care Nurse Name: Sherry Horn RN Position: [facility] SN RN Member Role: Primary Care Nurse Care Team Related PersonsName: KAYODE MARIA GUADALUPE Address: home [address] [place] [address] Name: BRODERICK HAYNES Address: home [address] [place] [address] Name: VANNESA KAMARA Name: SARY CAMPOS Address: home [address] [place] [address] Name: MALA DE ANDA Address: home [address] [place] [address] Name: BRADLEY BUCHANAN Address: [address] [place] [address] Name: ANIKA CANO
--- OUTSIDE RECORDS SUMMARY | 2022-10-08 15:03 | XMS_ITS | Continuity of Care Document ---
:1980 Author Organization [facility] Address [address] [place] [address]- Care Team Providers Name Role Phone Oswald Laguerre MD Primary Care Physician Encounter [facility] [place] Date(s): 02/25/22 - 02/25/[address] [address]- Encounter Diagnosis Neck pain (Final) - 02/25/22 Chest pain (Final) - 02/25/22 Discharge Disposition: A-D/C Home Attending Physician: Vahe Lira DO Admitting Physician: Vahe Lira DO Referring Physician: Not on Staff, Referring MD Allergies, Adverse Reactions, Alerts No Known Allergies Immunizations Given and Recorded Vaccine Date Status Refusal Reason pneumococcal 23-valent vaccine 08/14/17 Given influenza virus vaccine, inactivated 08/14/17 Given Medications acetaminophen 325 mg oral capsule 2 capsule = 650 mg, By Mouth, Every 4 hours, PRN Pain , Moderate, # 90 capsule, 0 Refills, Maintenance, 05/20/20 17:35:00 EDT, Capsule, [facility], 152, cm, 05/20/20 16:32:00 EDT, Height,57, kg, 05/18/20 12:42:00 EDT, Dry Weight Start Date: 05/20/20 Status: Orderedacetaminophen 325 mg oral capsule 2 capsule = 650 mg, By Mouth, Every 6 hours, PRN as needed for pain, # 20 capsule, 0 Refills, Maintenance, 02/25/22 21:01:00 EDT, Capsule, [facility]/pharmacy #[id number], Partial fill upon patient request if the prescription is for a schedule II opioid drug., 149... Start Date: 02/25/22 Status: Orderedapixaban 5 mg oral tablet 1 tablet = 5 mg, By Mouth, 2 times a day, # 30 tablet, 0 Refills, Maintenance, 06/01/20 16:53:00 EDT, Tablet, [facility], 152, cm, 06/01/20 [...] Daily in AM, Maintenance, 03/25/19 16:25:04 EDT, [place] Start Date: 03/25/19 Status: Orderedgabapentin 100 mg [...] 07/17/20 0:07:00 EDT Start Date: 07/17/20 Status: OrderedMorPHINE Inj 4 mg, Injection, IV Push Slowly, Every 5 minutes for 3 doses/times, PRN for Pain , Moderate, and SBPgreater than 100, Routine, 02/25/22 19:53:00 EDT, Stop date Limited # of times Start Date: 02/25/22 Stop Date: 02/25/22 Status: Completedolanzapine 20 mg oral tablet 1 tablet = 20 mg, By Mouth, Daily at bedtime, Maintenance, 03/25/19 16:26:30 EDT, Tablet Start Date: 03/25/19 Status: Orderedpromethazine 25 mg oral tablet 0.5 each = 12.5 mg, By Mouth, 2 times a day, PRN Vomiting, # 3 tablet, 0 Refills, Maintenance, 06/01/20 17:48:00 EDT, Tablet, [facility], 152, cm, 06/01/20 [...] to oldest 1 2 3 [Reference Range]: Oxygen Saturation [94-100 %] 99 % 98 % (02/25/22 9:19 PM) (02/25/22 6:17 PM) Pulse Rate [55-90 bpm] 80 bpm 78 bpm (02/25/22 9:19 PM) (02/25/22 6:17 PM) Blood Pressure [90-138/55-84 mm 134/87 mm Hg 142/89 mm Hg Hg] (02/25/22 9:19 PM) *H* (02/25/22 6:17 PM) Respiratory Rate [16-30 br/min] 16 br/min 16 br/min 18 br/min (02/25/22 9:19 PM) (02/25/22 8:39 PM) (02/25/22 7:5 1 PM) Temperature [96.8-100.4 DegF] 98 DegF (02/25/22 6:17 PM) Mode of Delivery (Oxygen) Room air Room air (02/25/22 9:19 PM) (02/25/22 6:17 PM) Temperature Route Oral (02/25/22 6:17 PM) Social History Social History Type Response Smoking Status Current every day smoker; Ty pe: Cigarettes; Previous treatment: Nicotine replacement; Tobacco use times per day: 10-15 per day; Started at age: 17; entered on: 08/11/17 Sex Female
--- OUTSIDE RECORDS SUMMARY | 2022-10-08 15:03 | XMS_ITS | Continuity of Care Document ---
:1980 Author Organization [facility] Address [address] [facility], 3rd Floor, [address] [place] [phone]- Care Team Providers Name Role Phone Oswald Laguerre MD Primary Care Physician [place] [facility] [place](s[place] 09/06/22 - 10/06/22 [facility] [address] [place], [address]rd Floor, [address] [place] [id number] Allergies, Adverse Reactions, Alerts No Known Allergies Immunizations Given and Recorded Vaccine Date Status Refusal Reason pneumococcal 23-valent vaccine 08/14/17 Given influenza virus vaccine, inactivated 08/14/17 Given Medications acetaminophen 325 mg oral capsule 2 capsule = 650 mg, By Mouth, Every 4 hours, PRN Pain , Moderate, # 90 capsule, 0 Refills, Maintenance, 05/20/20 17:35:00 EDT, Capsule, [facility], 152, cm, 05/20/20 16:32:00 EDT, Height,57, kg, 05/18/20 12:42:00 EDT, Dry Weight Start Date: 05/20/20 Status: Orderedacetaminophen 325 mg oral capsule 2 capsule = 650 mg, By Mouth, Every 6 hours, PRN as needed for pain, # 20 capsule, 0 Refills, Maintenance, 02/25/22 21:01:00 EDT, Capsule, [facility]/pharmacy #[id number], Partial fill upon patient request if the prescription is for a schedule II opioid drug., 149... Start Date: 02/25/22 Status: Orderedapixaban 5 mg oral tablet 1 tablet = 5 mg, By Mouth, 2 times a day, # 30 tablet, 0 Refills, Maintenance, 06/01/20 16:53:00 EDT, Tablet, [facility], 152, cm, 06/01/20 5:58:00 [...] Refills, Maintenance, 08/09/20 12:18:00 EST, EC Capsule, [facility]/pharmacy #[id number], Partial fill upon patient request, 149.9, cm, 08/09/20 10:52:00 EST, Height, 52, kg, 07/16/20 23:44:00 EDT, Dry Weight Start Date: 08/09/20 Status: Orderedfluticasone 50 mcg/inh nasal spray 2 sprays, Nares, Both, Daily in AM, Maintenance, 03/25/19 16:25:04 EDT, [place] Start Date: 03/25/19 Status: Orderedgabapentin 100 mg [...] 0 Refills, Maintenance, 06/01/20 17:48:00 EDT, Tablet, [facility], 152, cm, 06/01/20 5:58:00 [...] Reference Physician Member Role: PCP Address: Address: [address] [place] [address] [address] [place], [place] [address] Name: Henri Goss RN Position: S RN Member Role: Primary Care Nurse Name: Angela Loza RN Position: S RN Member Role: Primary Care Nurse Name: Meaghan Downing RN Position: [facility] Handkerchief Folder Member Role: Primary Care Nurse Name: Hanna Ruiz RN Position: [facility] RN Member Role: Primary Care Nurse Name: Felicia Garcia RN Position: [facility] SN RN Member Role: Primary Care Nurse Name: Francine Mosquera RN Position: [facility] RN Member Role: Primary Care Nurse Name: Marjorie Shen RN Position: [facility] Handkerchief Folder Member Role: Primary Care Nurse Name: Kory RNSherry Position: [facility] SN RN Member Role: Primary Care Nurse Care Team Related PersonsName: EDGAR HEADLEYEL Address: home [address] [place] [address] Name: BRODERICK HAYNES Address: home [address] [place] [address] Name: VANNESA KAMARA Name: SARY CAMPOS Address: home [address] [place] [address] Name: MALA DE ANDA Address: [address] [place] [address] Name: BRADLEY BUCHANAN Address: home [address] [place] [address] Name: ANIKA CANO
--- OUTSIDE RECORDS SUMMARY | 2022-10-08 15:03 | XMS_ITS | Continuity of Care Document ---
:1980 Author Organization [facility] Address [address] [facility], 3rd Floor, [address] [place] [address]- Care Team Providers Name Role Phone Oswald Laguerre MD Primary Care Physician Encounter [facility] [place] Date(s): 05/12/22 - 06/11/22 [facility] [address], [address] [facility], [address] [place] [address]- Allergies, Adverse Reactions, Alerts No Known Allergies Immunizations Given and Recorded Vaccine Date Status Refusal Reason pneumococcal 23-valent vaccine 08/14/17 Given influenza virus vaccine, inactivated 08/14/17 Given Medications acetaminophen 325 mg oral capsule 2 capsule = 650 mg, By Mouth, Every 4 hours, PRN Pain , Moderate, # 90 capsule, 0 Refills, Maintenance, 05/20/20 17:35:00 EDT, Capsule, [facility], 152, cm, 05/20/20 16:32:00 EDT, Height,57, kg, 05/18/20 12:42:00 EDT, Dry Weight Start Date: 05/20/20 Status: Orderedacetaminophen 325 mg oral capsule 2 capsule = 650 mg, By Mouth, Every 6 hours, PRN as needed for pain, # 20 capsule, 0 Refills, Maintenance, 02/25/22 21:01:00 EDT, Capsule, [facility]/pharmacy #[id number], Partial fill upon patient request if the prescription is for a schedule II opioid drug., 149... Start Date: 02/25/22 Status: Orderedapixaban 5 mg oral tablet 1 tablet = 5 mg, By Mouth, 2 times a day, # 30 tablet, 0 Refills, Maintenance, 06/01/20 16:53:00 EDT, Tablet, [facility], 152, cm, 06/01/20 5:58:00 [...] Refills, Maintenance, 08/09/20 12:18:00 EST, EC Capsule, [facility]/pharmacy #[id number], Partial fill upon patient request, 149.9, cm, 08/09/20 10:52:00 EST, Height, 52, kg, 07/16/20 23:44:00 EDT, Dry Weight Start Date: 08/09/20 Status: Orderedfluticasone 50 mcg/inh nasal spray 2 sprays, Nares, Both, Daily in AM, Maintenance, 03/25/19 16:25:04 EDT, [place] Start Date: 03/25/19 Status: Orderedgabapentin 100 [...] 0 Refills, Maintenance, 06/01/20 17:48:00 EDT, Tablet, [facility], 152, cm, 06/01/20 5:58:00 [...] age: 17; entered on: 08/11/17 Sex Female Care Team PersonnelName: Oswald Laguerre MD Address: [address] [place] [address] [address]
--- OUTSIDE RECORDS SUMMARY | 2022-10-08 15:03 | XMS_ITS | Continuity of Care Document ---
:1980 Author Organization [facility] Address [address] [facility], 3rd Floor, [address] [place] [address]- Care Team Providers Name Role Phone Oswald Laguerre MD Primary Care Physician Encounter [facility] Date(s): 08/16/22 - 09/15/22 [facility] [address] [facility], 3rd Floor, [address] [place] [address] Allergies, Adverse Reactions, Alerts No Known Allergies Immunizations Given and Recorded Vaccine Date Status Refusal Reason pneumococcal 23-valent vaccine 08/14/17 Given influenza virus vaccine, inactivated 08/14/17 Given Medications acetaminophen 325 mg oral capsule 2 capsule = 650 mg, By Mouth, Every 4 hours, PRN Pain , Moderate, # 90 capsule, 0 Refills, Maintenance, 05/20/20 17:35:00 EDT, Capsule, [facility], 152, cm, 05/20/20 16:32:00 EDT, Height,57, kg, 05/18/20 12:42:00 EDT, Dry Weight Start Date: 05/20/20 Status: Orderedacetaminophen 325 mg oral capsule 2 capsule = 650 mg, By Mouth, Every 6 hours, PRN as needed for pain, # 20 capsule, 0 Refills, Maintenance, 02/25/22 21:01:00 EDT, Capsule, [facility]/pharmacy #[id number], Partial fill upon patient request if the prescription is for a schedule II opioid drug., 149... Start Date: 02/25/22 Status: Orderedapixaban 5 mg oral tablet 1 tablet = 5 mg, By Mouth, 2 times a day, # 30 tablet, 0 Refills, Maintenance, 06/01/20 16:53:00 EDT, Tablet, [facility], 152, cm, 06/01/20 5:58:00 [...] Refills, Maintenance, 08/09/20 12:18:00 EST, EC Capsule, [facility]/pharmacy #[id number], Partial fill upon patient request, 149.9, cm, 08/09/20 10:52:00 EST, Height, 52, kg, 07/16/20 23:44:00 EDT, Dry Weight Start Date: 08/09/20 Status: Orderedfluticasone 50 mcg/inh nasal spray 2 sprays, Nares, Both, Daily in AM, Maintenance, 03/25/19 16:25:04 EDT, [place] Start Date: 03/25/19 Status: Orderedgabapentin 100 mg [...] 0 Refills, Maintenance, 06/01/20 17:48:00 EDT, Tablet, [facility], 152, cm, 06/01/20 5:58:00 [...] Reference Physician Member Role: PCP Address: Address: [address] [place] [address] [address] [place], [place] [address] Name: Henri Goss RN Position: S RN Member Role: Primary Care Nurse Name: Angela Loza RN Position: S RN Member Role: Primary Care Nurse Name: Meaghan Downing RN Position: [facility] Quarantine Inspector Member Role: Primary Care Nurse Name: Hanna Ruiz RN Position: [facility] RN Member Role: Primary Care Nurse Name: Felicia Garcia RN Position: [facility] SN RN Member Role: Primary Care Nurse Name: Francine Mosquera RN Position: [facility] RN Member Role: Primary Care Nurse Name: Marjorie Shen RN Position: [facility] Quarantine Inspector Member Role: Primary Care Nurse Name: Sherry Horn RN Position: [facility] SN RN Member Role: Primary Care Nurse Care Team Related PersonsName: KAYODE MARIA GUADALUPE Address: [address] [place] [address] Name: RBODERICK HAYNES Address: [address] [place] [address] Name: VANNESA KAMARA Name: SARY CAMPOS Address: [address] [place] [address] Name: MALA DE ANDA Address: [address] [place] [address] Name: BRADLEY BUCHANAN Address: [address] [place] [address] Name: ANIKA CANO
--- OUTSIDE RECORDS SUMMARY | 2022-10-08 15:03 | XMS_ITS | Continuity of Care Document ---
:1980 Author Organization [facility] Address [address] [place] [address]- Care Team Providers Name Role Phone Shade GARCIA, Oswald Primary Care Physician Encounter [facility] [place] [place] Date(s): 08/20/19 - 11/21/19 [facility] [address] [place] [address]- [facility] Attending Physician: Venus Alberto MD Admitting Physician: Venus Alberto MD Referring Physician: Oswald Laguerre MD Allergies, [...] Daily in AM, Maintenance, 03/25/19 16:25:04 EDT, [place] Start Date: 03/25/19 Status: Orderedgabapentin 100 mg [...] Refills, Maintenance, 09/02/19 8:30:13 EST, Capsule, [facility]/pharmacy #[id number], 153.5, cm, 09/02/19 6:56:51 EST, [...]
--- OUTSIDE RECORDS SUMMARY | 2022-10-08 15:03 | XMS_ITS | Continuity of Care Document ---
:1980 Author Organization [facility] Address [address] [place] [phone]- Care Team Providers Name Role Phone Oswald Laguerre MD Primary Care Physician Encounter [facility] Date(s): 07/16/20 - 07/19/[address] [address]- [facility] Encounter Diagnosis Pancreatitis (Final) - 07/16/20 Discharge Disposition: A-D/C Home Attending Physician: Ruben GARCIA, Timothy Tolliver Admitting Physician: Herber Bruner MD Referring Physician: Not on Staff, Referring [...] 0 Refills, Maintenance, 05/20/20 17:35:00 EDT, Capsule, [facility], 152, cm, 05/20/20 16:32:00 EDT, Height,57, kg, 05/18/20 12:42:00 EDT, Dry Weight Start Date: 05/20/20 Status: Orderedapixaban 5 mg oral tablet 1 tablet = 5 mg, By Mouth, 2 times a day, # 30 tablet, 0 Refills, Maintenance, 06/01/20 16:53:00 EDT, Tablet, [facility], 152, cm, 06/01/20 5:58:00 [...] Daily in AM, Maintenance, 03/25/19 16:25:04 EDT, [place] Start Date: 03/25/19 Status: Orderedgabapentin 100 mg [...] 07/17/20 0:07:00 EDT Start Date: 07/17/20 Status: Orderednicotine 7 mg/24 hr transdermal film, extended release 1 patch, Topically, Daily, for 30 days, # 30 patch, 0 Refills, Acute 08/18/20 13:57:00 EST, 07/19/2013:57:00 EST, Patch, [facility], 1 patch Topically Daily,x30 days, 152, cm, 07/19/20 11:25:00 EST, Height, 52, kg, 07/16/20 23:44:00 EDT... Start Date: 07/19/20 Stop Date: 08/18/20 Status: Orderedolanzapine 20 mg oral tablet 1 tablet = 20 mg, By Mouth, Daily at bedtime, Maintenance, 03/25/19 16:26:30 EDT, Tablet Start Date: 03/25/19 Status: OrderedoxyCODONE 5 mg oral tablet 5 mg, 1, tablet, By Mouth, Every 6 hours, PRN, for 5 days, # 20 tablet, Refills 0, Tot. Refills 0, Acute 07/24/20 13:52:00 EST, Pain , Mild, 07/19/20 13:52:00 EST, Route to Pharmacy Electronically, [facility], Partial fill upon patient r... Start Date: 07/19/20 Stop Date: 07/24/20 Status: Orderedpromethazine 25 mg oral tablet 0.5 each = 12.5 mg, By Mouth, 2 times a day, PRN Vomiting, # 3 tablet, 0 Refills, Maintenance, 06/01/20 17:48:00 EDT, Tablet, [facility], 152, cm, 06/01/20 5:58:00 [...] (post-traumatic stress Active disorder)(Confirmed) Pancreatitis, recurrent(Confirmed) Active Results Orders for Microbiology Reports Name Date Blood Culture 07/16/20 Blood Culture #2 07/16/20 Microbiology Reports TEST:Blood Culture STATUS:Unauthenticated BODY SITE: SOURCE:Blood COLLECTED DATE/TIME:07/16/20 10:06 PMBlood Culture SPECIMEN DESCRIPTION : BLOOD RAC SPECIAL REQUESTS : NONE CULTURE : NO GROWTH 3 DAYS REPORT STATUS : PRELIMINARY REPORT TEST:Blood Culture, Second Order STATUS:Unauthenticated BODY SITE: SOURCE:Blood COLLECTED DATE/TIME:07/16/20 7:59 PMBlood Culture, Second Order SPECIMEN DESCRIPTION : BLOOD LT AC SPECIAL REQUESTS : NONE CULTURE : NO GROWTH 3 DAYS REPORT STATUS : PRELIMINARY REPORT Vital Signs Most recent to oldest 1 2 3 [Reference Range]: Height 152 cm 152 cm 152 cm (07/19/20 11:25 AM) (07/19/20 4:59 AM) (07/18/20 4: 44 PM) Weight 51.9 kg 52 kg 52 kg (07/17/20 5:13 AM) (07/16/20 11:44 PM) (07/16/20 10:14 PM) Oxygen Saturation [94-100 99 % 100 % 98 % %] (07/19/20 11:25 AM) (07/19/20 4:59 AM) (07/18/20 4: 44 PM) Pulse Rate [55-90 bpm] 72 bpm 80 bpm 78 bpm (07/19/20 11:25 AM) (07/19/20 10:25 AM) (07/19/20 4 :59 AM) Body Mass Index 22.46 22.51 22.51 [18.5-24.99] (07/17/20 5:13 AM) (07/16/20 11:44 PM) (07/16/20 10:14 PM) Blood Pressure 90/50 mm Hg 112/70 mm Hg 106/64 mm Hg [90-138/55-84 mm Hg] (07/19/20 11:25 AM) (07/19/20 10:25 AM) (07/19 4:59 AM) Respiratory Rate [16-30 18 br/min 18 br/min 18 br/mi n br/min] (07/19/20 3:32 PM) (07/19/20 2:11 PM) (07/19/20 2:1 1 PM) Temperature [96.8-100.4 98.1 DegF 98.3 DegF 98.1 Deg F DegF] (07/19/20 11:25 AM) (07/19/20 4:59 AM) (07/18/20 4: 44 PM) Liters per Minute 20 L/min (07/16/20 7:30 PM) Mode of Delivery (Oxygen) Room air Room air Room a ir (07/19/20 11:25 AM) (07/19/20 4:59 AM) (07/18/20 4: 44 PM) Blood pressure sites Arm, right Arm, right Arm, left (07/19/20 11:25 AM) (07/19/20 4:59 AM) (07/18/20 4: 44 PM) Temperature Route Oral Oral Oral (07/19/20 11:25 AM) (07/19/20 4:59 AM) (07/18/20 4: 44 PM) Dry Weight 52 kg 52 kg 52 kg (07/16/20 11:44 PM) (07/16/20 10:14 PM) ( 0 10:02 PM) Weight Obtained Via Bed scale Bed scale (07/17/20 5:13 AM) (07/16/20 11:44 PM) Dry Weight Obtained Via Bed scale (07/16/20 11:44 PM) Social History Social History Type Response Smoking Status Current every day smoker; Ty pe: Cigarettes; Previous treatment: Nicotine replacement; Tobacco use times per day: 10-15 per day; Started at age: 17; entered on: 08/11/17 Sex Female
--- OUTSIDE RECORDS SUMMARY | 2022-10-08 15:03 | XMS_ITS | Continuity of Care Document ---
:1980 Author Organization [facility] Address [address] [place] [address]- Care Team Providers Name Role Phone Shade GARCIA, Oswald Primary Care Physician [place] [facility] [place] 01/12/20 - 02/12/20 [facility] [address] [place] [id number]- [facility] Attending Physician: Kody Kemp MD Admitting Physician: Justo GARCIA, Kody Referring Physician: Oswald Laguerre MD Allergies, Adverse [...] Daily in AM, Maintenance, 03/25/19 16:25:04 EDT, [place] Start Date: 03/25/19 Status: Orderedgabapentin 100 mg [...] 0 Refills, Maintenance, 09/02/19 8:30:13 EST, Capsule, [facility]/pharmacy #[id number], 153.5, cm, 09/02/19 6:56:51 EST, [...]
--- OUTSIDE RECORDS SUMMARY | 2022-10-08 15:03 | XMS_ITS | Continuity of Care Document ---
:1980 Author Organization [facility] Address [address] [place] [address]- Care Team Providers Name Role Phone Oswald Laguerre MD Primary Care Phys[place] [facility] [place] - 05/11/[address] [address]- [facility] Encounter Diagnosis Acute alcoholic pancreatitis (Final) - 05/04/20 Discharge Disposition: A-D/C Home Attending Physician: Michael Pimentel MD Admitting Physician: Mark Burnette DO Referring Physician: Not on Staff, Referring MD Allergies, Adverse Reactions, Alerts Substance Reaction Severity Status NKA Active Immunizations Given and Recorded Vaccine Date Status Refusal Reason pneumococcal 23-valent vaccine 08/14/17 Given influenza virus vaccine, inactivated 08/14/17 Given Medications apixaban 5 mg oral tablet See Instructions, 10 mg twice a day for 4 days followed by 5 mg daily, # 90 tablet, 0 Refills, Maintenance, 05/11/20 10:18:00 EDT, Tablet, [facility], 152, cm, 05/10/20 9:15:00 EDT, Height, 60.2, kg, 05/05/20 4:48:00 EDT, Dry Weight Start Date: 05/11/20 Status: Orderedatorvastatin 40 mg oral tablet = [...] Daily in AM, Maintenance, 03/25/19 16:25:04 EDT, [place] Start Date: 03/25/19 Status: Orderedfolic acid 1 mg oral tablet 1 mg, 1, tablet, By Mouth, Daily, # 14 tablet, Refills 0, Tot. Refills 0, Maintenance, 05/11/20 10:19:00 EDT, Route to Pharmacy Electronically, [facility], 152, cm, 05/10/20 9:15:00 EDT, Height, 60.2, kg, 05/05/20 4:48:00 EDT, Dry Weight Start Date: 05/11/20 Stop Date: 05/25/20 Status: Orderedgabapentin 100 mg oral capsule 100 [...] 08/11/17 18:45:05, Tablet Start Date: 08/11/17 Status: Orderednaltrexone 50 mg oral tablet 1 tablet = 50 mg, By Mouth, Daily, # 30 tablet, 0 Refills, Maintenance, 05/11/20 10:20:00 EDT, Tablet, [facility], 152, cm, 05/10/20 9:15:00 EDT, Height, 60.2, kg, 05/05/20 4:48:00 EDT, Dry Weight Start Date: 05/11/20 Status: Orderedolanzapine 20 mg oral tablet 1 tablet = 20 mg, By Mouth, Daily at bedtime, Maintenance, 03/25/19 16:26:30 EDT, Tablet Start Date: 03/25/19 Status: OrderedoxyCODONE 5 mg oral tablet 5 mg, 1, tablet, By Mouth, Every 6 hours, PRN, for 4 days, # 12 tablet, Refills 0, Tot. Refills 0, Acute 05/15/20 10:19:00 EDT, for pain, 05/11/20 10:19:00 EDT, Route to Pharmacy Electronically, [facility], Partial fill upon patient requ... Start Date: 05/11/20 Stop Date: 05/15/20 Status: Orderedpropranolol 10 mg oral tablet 10 mg, 1, tablet, By Mouth, 2 times a day, Maintenance, 03/25/19 16:26:59 EDT Start Date: 03/25/19 Status: Orderedthiamine 100 mg oral tablet 100 mg, 1, tablet, By Mouth, 2 times a day, for 14 days, # 28 tablet, Refills 0, Tot. Refills 0, Acute 05/25/20 10:19:00 EDT, 05/11/20 10:19:00 EDT, Route to Pharmacy Electronically, [facility], 152, cm, 05/10/20 9:15:00 EDT, Height, 60.... Start Date: 05/11/20 Stop Date: 05/25/20 Status: OrderedTylenol 325 mg oral capsule 2 capsule = 650 mg, By Mouth, Every 4 hours, PRN as needed for fever, # 20 capsule, 0 Refills, Maintenance, 09/02/19 8:30:13 EST, Capsule, [id number], 153.5, cm, 09/02/19 6:56:51 EST, [...] for Microbiology Reports Name Date Blood Culture 05/04/20 Blood Culture #2 05/04/20 Urine Culture (URINE CULTURE) 05/03/20 Microbiology Reports TEST:Blood Culture STATUS:Auth (Verified) BODY SITE: SOURCE:Blood COLLECTED DATE/TIME:05/04/20 3:50 AMBlood Culture SPECIMEN DESCRIPTION : BLOOD LAC SPECIAL REQUESTS : NONE CULTURE : NO GROWTH 5 DAYS. REPORT STATUS : FINAL 05/09/2020TEST:Blood Culture, Second Order STATUS:Auth (Verified) BODY SITE: SOURCE:Blood COLLECTED DATE/TIME:05/04/20 3:50 AMBlood Culture, Second Order SPECIMEN DESCRIPTION : BLOOD RAC SPECIAL REQUESTS : NONE CULTURE : NO GROWTH 5 DAYS. REPORT STATUS : FINAL 05/09/2020TEST:Urine Culture STATUS:Auth (Verified) BODY SITE: SOURCE:URINE COLLECTED DATE/TIME:05/03/20 10:59 PMUrine Culture SPECIMEN DESCRIPTION : URINE SPECIAL REQUESTS : NONE CULTURE : >100,000 COL/ML STAPH. SPECIES, NOT STAPH. AUREUS OR STAPH. SAPROPHYTICUS. REPORT STATUS : FINAL 05/06/2020 ORGANISM >100,000 COL/ML STAPH. SPECIES, NOT STAPH. AUREUS OR STAPH. SAPROPHYTICUS. METHOD MIN. INHIB. CONC. (MCG/ML) CIPROFLOXACIN SUSCEPTIBLE LEVOFLOXACIN SUSCEPTIBLE NITROFURANTOIN SUSCEPTIBLE RIFAMPIN SUSCEPTIBLE TRIMETH/SULFAMETHOX SUSCEPTIBLE VANCOMYCIN SUSCEPTIBLE Vital Signs Most recent to oldest 1 2 3 4 [Reference Range]: Height 152 cm 152 cm 152 cm (05/10/20 9:15 AM) (05/09/20 6:38 PM) (05/05/20 2:36 AM) Weight 60.2 kg (05/05/20 2:36 AM) Oxygen Saturation 96 % 96 % 97 % [94-100 %] (05/11/20 8:00 AM) (05/11/20 3:00 AM) (05/10/20 11:00 PM) Pulse Rate [55-90 bpm] 103 bpm 90 bpm 103 bpm *H* (05/11/20 8:00 AM) *H* (05/11/20 8:32 AM) (05/11/20 3:00 AM) Body Mass Index 26.06 [18.5-24.99] *H* (05/05/20 2:36 AM) Blood Pressure 124/88 mm Hg 118/74 mm Hg 124/88 mm Hg [90-138/55-84 mm Hg] (05/11/20 8:32 AM) (05/11/20 8:00 AM) (05/11/20 3 :00 AM) Respiratory Rate [16-30 20 br/min 20 br/min 18 br/min 18 b r/min br/min] (05/11/20 9:33 AM) (05/11/20 9:33 AM) (05/11/20 8:33 AM) (05/11/20 8:33 AM) Temperature [96.8-100.4 97.7 DegF 98.9 DegF 98.9 DegF DegF] (05/11/20 8:00 AM) (05/11/20 3:00 AM) (05/10/20 11:00 PM) Liters per Minute 1 L/min 2 L/min 2 L/min (05/06/20 11:00 PM) (05/06/20 2:00 PM) (05/06/20 12:00 PM ) Mode of Delivery Room air Room air Room air (Oxygen) (05/11/20 8:00 AM) (05/11/20 3:00 AM) (05/10/20 11:00 PM) Blood pressure sites Arm, right Arm, left Arm, left (05/11/20 8:00 AM) (05/11/20 3:00 AM) (05/10/20 11:00 PM) Temperature Route Oral Oral Oral (05/11/20 8:00 AM) (05/11/20 3:00 AM) (05/10/20 11:00 PM) Dry Weight 60.2 kg (05/05/20 2:36 AM) Weight Obtained Via Bed scale (05/05/20 2:36 AM) Social History Social History Type Response Smoking Status Current every day smoker; Ty pe: Cigarettes; Previous treatment: Nicotine replacement; Tobacco use times per day: 10-15 per day; Started at age: 17; entered on: 08/11/17 Sex
--- OUTSIDE RECORDS SUMMARY | 2022-10-08 15:03 | XMS_ITS | Continuity of Care Document ---
:1980 Author Organization [facility] Address [address] [place] [id number]- Care Team Providers Name Role Phone Oswald Laguerre MD Primary Care Physician [place] [facility] [place] - 05/20/[address] [address]- [facility] Encounter Diagnosis Other specified conditions associated with female genital organs and menstrual cycle (Final) - 05/17/20 Discharge Disposition: A-D/C Home Attending Physician: Maricruz Solano MD Admitting Physician: Megan Balderrama DO Referring Physician: Not on Staff, Referring [...] 0 Refills, Maintenance, 05/20/20 17:35:00 EDT, Capsule, [facility], 152, cm, 05/20/20 16:32:00 EDT, Height,57, kg, 05/18/20 12:42:00 EDT, Dry Weight Start Date: 05/20/20 Status: Orderedamoxicillin-clavulanate 875 mg-125 mg oral tablet 1 tablet, By Mouth, 2 times a day, # 56 tablet, 0 Refills, Acute 06/17/20 17:26:00 EDT, 05/20/20 17:25:00 EDT, Tablet, [facility], 152, cm, 05/20/20 16:32:00 EDT, Height, 57, kg, 05/18/2012:42:00 EDT, Dry Weight Start Date: 05/20/20 Stop Date: 06/17/20 Status: Orderedapixaban 5 mg oral tablet 1 tablet = 5 mg, By Mouth, Daily, # 30 tablet, 0 Refills, Maintenance, 05/20/20 17:33:00 EDT, Tablet, [facility], 152, cm, 05/20/20 16:32:00 EDT, Height, 57, kg, 05/18/20 12:42:00 EDT, Dry Weight Start Date: 05/20/20 Status: Orderedatorvastatin 40 mg oral tablet = [...] Daily in AM, Maintenance, 03/25/19 16:25:04 EDT, [place] Start Date: 03/25/19 Status: Orderedfolic acid 1 mg oral tablet 1 mg, 1, tablet, By Mouth, Daily, # 14 tablet, Refills 0, Tot. Refills 0, Maintenance, 05/11/20 10:19:00 EDT, Route to Pharmacy Electronically, [facility], 152, cm, 05/10/20 9:15:00 [...] 0 Refills, Maintenance, 05/11/20 10:20:00 EDT, Tablet, [facility], 152, cm, 05/10/20 9:15:00 EDT, Height, 60.2, kg, 05/05/20 4:48:00 EDT, Dry Weight Start Date: 05/11/20 Status: Orderednicotine 21 mg-14 mg-7 mg transdermal film, extended release 1 each, Topically, Daily, # 1 kit, 0 Refills, Maintenance, 05/20/20 17:34:00 EDT, [facility], 1 each Topically Daily, 152, cm, 05/20/20 16:32:00 EDT, Height, 57, kg, 05/18/20 12:42:00 EDT, Dry Weight Start Date: 05/20/20 Stop Date: 05/21/20 Status: Orderedolanzapine 20 mg oral tablet 1 [...] 05/11/20 10:19:00 EDT, Route to Pharmacy Electronically, [facility], 152, cm, 05/10/20 9:15:00 EDT, Height, 60.... Start Date: 05/11/20 Stop Date: 05/25/20 Status: Ordered Problem List Condition Effective Dates Status Health Status Informant Anxiety(Confirmed) Active Fibromyalgia muscle pain(Confirmed) Active PTSD (post-traumatic stress Active disorder)(Confirmed) Pancreatitis, recurrent(Confirmed) Active Procedures Procedure Date Related Diagnosis Body Site Status Laparoscopy, surgical, repair, ventral, Completed umbilical, spigelian or epigastric hernia (includes mesh insertion, when performed); incarcerated or strangulated Results Orders for Microbiology Reports Name Date Blood Culture 05/17/20 Blood Culture #2 05/17/20 Microbiology Reports TEST:Blood Culture, Second Order STATUS:Unauthenticated BODY SITE: SOURCE:Blood COLLECTED DATE/TIME:05/17/20 7:20 PMBlood Culture, Second Order SPECIMEN DESCRIPTION : BLOOD R ARM SPECIAL REQUESTS : NONE CULTURE : NO GROWTH 3 DAYS REPORT STATUS : PRELIMINARY REPORT TEST:Blood Culture STATUS:Unauthenticated BODY SITE: SOURCE:Blood COLLECTED DATE/TIME:05/17/20 7:05 PMBlood Culture SPECIMEN DESCRIPTION : BLOOD HAND SPECIAL REQUESTS : NONE CULTURE : NO GROWTH 3 DAYS REPORT STATUS : PRELIMINARY REPORT Vital Signs Most recent to oldest 1 2 3 [Reference Range]: Height 152 cm 152 cm 152 cm (05/20/20 4:32 PM) (05/20/20 11:14 AM) (05/20/20 6:49 AM) Weight 56.5 kg 57 kg 54.7 kg (05/19/20 6:00 AM) (05/18/20 11:04 AM) (05/18/20 7:01 AM) Oxygen Saturation [94-100 95 % 97 % 98 % %] (05/20/20 4:32 PM) (05/20/20 11:14 AM) (05/20/20 6:49 AM) Pulse Rate [55-90 bpm] 94 bpm 79 bpm 86 bpm *H* (05/20/20 11:14 AM) (05/20/20 8:13 A M) (05/20/20 4:32 PM) Body Mass Index 24.45 24.67 [18.5-24.99] (05/19/20 6:00 AM) (05/18/20 11:04 AM) Blood Pressure 102/66 mm Hg 108/69 mm Hg 103/70 mm Hg [90-138/55-84 mm Hg] (05/20/20 4:32 PM) (05/20/20 11:14 AM) (05/20/20 8:13 AM) Respiratory Rate [16-30 18 br/min 18 br/min 18 br/mi n br/min] (05/20/20 4:32 PM) (05/20/20 3:42 PM) (05/20/20 3:42 P M) Temperature [96.8-100.4 99.1 DegF 98.6 DegF 98.2 Deg F DegF] (05/20/20 4:32 PM) (05/20/20 11:14 AM) (05/20/20 6:49 AM) Mode of Delivery (Oxygen) Room air Room air Room a ir (05/20/20 4:32 PM) (05/20/20 11:14 AM) (05/20/20 6:49 AM) Blood pressure sites Arm, left Arm, left Arm, left (05/20/20 4:32 PM) (05/20/20 11:14 AM) (05/20/20 6:49 AM) Temperature Route Oral Oral Oral (05/20/20 4:32 PM) (05/20/20 11:14 AM) (05/20/20 6:49 AM) Dry Weight 57 kg (05/18/20 11:04 AM) Weight Obtained Via Bed scale Patient/family stated (05/19/20 6:00 AM) (05/18/20 11:04 AM) Dry Weight Obtained Via Patient/family stated (05/18/20 11:04 AM) Social History Social History Type Response Smoking Status Current every day smoker; Ty pe: Cigarettes; Previous treatment: Nicotine replacement; Tobacco use times per day: 10-15 per day; Started at age: 17; entered on: 08/11/17 Sex Female
--- OUTSIDE RECORDS SUMMARY | 2022-10-08 15:03 | XMS_ITS | Continuity of Care Document ---
:1980 Author Organization [facility] Address [address] [place] [phone]- Care Team Providers Name Role Phone Oswald Laguerre MD Primary Care Physician [place] [facility] [place] - 08/30/[address] [address]- [facility] Attending Physician: Admtr, [id number] Allergies, Adverse Reactions, Alerts Substance Reaction Severity [...] Daily in AM, Maintenance, 03/25/19 16:25:04 EDT, [place] Start Date: 03/25/19 Status: Orderedgabapentin 100 mg [...] 03/25/19 16:26:59 EDT Start Date: 03/25/19 Status: OrderedZofran 4 mg oral tablet 1 [...]
--- NOTE | 2022-10-08 15:04 | PC.NURSE ---
See paper chart patient arrived cardiac arrest last known well time 3am arrived with rigormortis and asystolic TOD [id number]
--- NOTE | 2022-10-08 15:09 | PC.NURSE ---
WILL BE ME CASE. CASE #[id number]
--- NOTE | 2022-10-08 15:11 | MHC.EDTECH ---
[facility] OFFICE WAS CONTACTED WITH
--- NOTE | 2022-10-08 15:20 | PC.NURSE ---
Addendum entered by Grace Bolivar 10/08/22 15:22: FILE NUMBER [id number] Original Note: SPOKE WITH [facility], DECLINED DUE TO NO PMHX AND RIGORMORTIS AND ASYSTOLIC FOR UNKNOWN AMOUNT OF TIME
--- NOTE | 2022-10-08 17:25 | PC.NURSE ---
FAMILY CONTACTS, BRADLEY BUCHANAN (SISTER) [phone]. ANIKA RUSLAN (SON'S FATHER) [phone] JOSE [place]
--- NOTE | 2022-10-08 18:40 | PC.NURSE ---
Patient [facility] to [facility] [place] .
== END 2022-10-08 18:43 | disposition expired ==
PROVIDERS: Emergency Provider Emergency Medicine
DX: I46.9 Cardiac arrest, cause unspecified (principal)
CPT/HCPCS: 96372; 99281; 99285; J0171